=== PATIENT | female | born 1990 | race African-American/Black ===

== ENCOUNTER 2017-06-03 02:37 | Emergency (ER) | payer BC, MEDICAID ==
[2017-06-03] MEDS ORDERED: IPRATROPIUM/ALBUTEROL 0.5-2.5 MG/3 ML AMPUL NEB ONE (03:05)
[2017-06-03] MEDS ORDERED: DEXAMETHASONE 4 MG TABLET PO ONE (03:05)
--- NOTE | 2017-06-03 03:07 | ER Document Report ---
ED General - General Chief Complaint: Asthma Exacerbation Stated Complaint: BREATHING DIFFICULTY Time Seen by Provider: 06/03/17 02:57 Notes: Patient is a 27-year-old female with a past medical history of asthma, no prior hospitalizations or intubations who presents with 2 days of progressively worsening shortness of breath. Patient states she used her albuterol inhaler with some relief of her shortness of breath but not complete resolution. She states she has feels mild tightness in her chest with exertion and this feels very similar to prior mild asthma exacerbations. She denies any significant shortness of breath, hemoptysis, chest pain, syncope, or infectious symptoms. She has not had any fever or constitutional symptoms. She has not seen her primary care doctor regarding today's concerns. TRAVEL OUTSIDE OF THE [place] IN LAST 30 DAYS: No - Related Data Allergies/Adverse Reactions: acetaminophen [From Percocet] Adverse Reaction (Intermediate, Verified 03/30/16 18:03) VOMITING oxycodone HCl [From Percocet] Adverse Reaction (Intermediate, Verified 03/30/16 18:03) VOMITING Past Medical History - General Information source: Patient - Social History Smoking Status: Never Smoker Frequency of alcohol use: None Drug Abuse: None Lives with: Spouse/Significant other Family History: Reviewed & Not Pertinent Review of Systems - Review of Systems Notes: Constitutional: Negative for fever. HENT: Negative for sore throat. Eyes: Negative for visual changes. Cardiovascular: Negative for chest pain. Respiratory: Positive for shortness of breath. Gastrointestinal: Negative for abdominal pain, vomiting or diarrhea. Genitourinary: Negative for dysuria. Musculoskeletal: Negative for back pain. Skin: Negative for rash. Neurological: Negative for headaches, weakness or numbness. 10 point ROS negative except as marked above and in HPI. Physical Exam - Vital signs Interpretation: Normal Notes: PHYSICAL EXAMINATION: GENERAL: Well-appearing, well-nourished and in no acute distress. HEAD: Atraumatic, normocephalic. EYES: Pupils equal round and reactive to light, extraocular movements intact, sclera anicteric, conjunctiva are normal. ENT: nares patent, oropharynx clear without exudates. Moist mucous membranes. NECK: Normal range of motion, supple without lymphadenopathy LUNGS: Breath sounds clear to auscultation bilaterally and equal. Mild end expiratory wheezing HEART: Regular rate and rhythm without murmurs ABDOMEN: Soft, nontender, normoactive bowel sounds. No guarding, no rebound. No masses appreciated. EXTREMITIES: Normal range of motion, no pitting or edema. No cyanosis. NEUROLOGICAL: No focal neurological deficits. Moves all extremities spontaneously and on command. PSYCH: Normal mood, normal affect. SKIN: Warm, Dry, normal turgor, no rashes or lesions noted. Course - Re-evaluation Re-evalutation: 06/03/17 03:05 Patient presents with a mild exacerbation of their baseline asthma. Mild wheezing at time of presentation but vitals do not show significant hypoxemia or tachypnea. No retractions. Patient did clinically improve after receiving nebulizers here in the emergency department. No clinical history to suggest an acute pneumonia to indicate the need for a chest x-ray. Patient able to ambulate without any respiratory distress. Based on patient's overall reassuring assessment, I believe they are stable for outpatient management. A dose of 10 mg of dexamethasone was administered in the emergency department. I do not suspect an acute alternative pathology at this time based on history and exam including acute pulmonary embolus, ACS, pneumothorax, or aortic dissection. At this time will discharge with return precautions and follow-up recommendations. Verbal discharge instructions given a the bedside and opportunity for questions given. Medication warnings reviewed. Patient is in agreement with this plan and has verbalized understanding of return precautions and the need for primary care follow-up in the next 24-72 hours. Discharge - Discharge Clinical Impression: Asthma exacerbation Qualifiers: Asthma severity: mild Asthma persistence: persistent Qualified Code(s): J45.31 - Mild persistent asthma with (acute) exacerbation Condition: Good Disposition: HOME, SELF-CARE Additional Instructions: You were seen for an asthma exacerbation. Your symptoms improved with treatment here in the emergency department. However, it is very important that you return to the emergency department immediately if you began to have worsening difficulty breathing that does not respond to your normal home albuterol inhaler. Your given a dose of steroids here in the emergency department which will last for the next 3 days. Please also follow closely with your primary care physician. you should also return to emergency department if you develop fever greater than 101, persistent cough, persistent vomiting, pass out, or any other symptoms that are concerning to you.
[2017-06-03 03:18] VITALS: BP 117/72
== END 2017-06-03 03:25 | disposition home or self-care (01) ==
LOC: ER 02:37
DX: J45.31 Mild persistent asthma with (acute) exacerbation (principal); R06.02 Shortness of breath
CPT/HCPCS: 94640; 99284; J7620

== ENCOUNTER 2018-03-06 07:58 | Outpatient (CLI) | payer BC, MEDICAID ==
[2018-03-06] MEDS ORDERED: NORMAL SALINE 250 ML IV PRN (08:00)
[2018-03-06] MEDS ORDERED: IRON DEXTRAN COMPLEX 775 MG in NORMAL SALINE 500 ML IV PRN (08:00)
[2018-03-06] MEDS ORDERED: IRON DEXTRAN COMPLEX 25 MG in SYRINGE, DISPOSABLE, 1 EACH IV PRN (08:00)
[2018-03-06 09:15] VITALS: BP 135/74
== END 2018-03-06 14:08 | disposition home or self-care (01) ==
LOC: II 07:58 → 5TH 08:14 → II 14:08
PROVIDERS: ATTEND Internal Medicine
PROC: 3E033GC Introduction of Other Therapeutic Substance into Peripheral Vein, Percutaneous Approach (ICD-10-PCS; principal; 2018-03-06)
DX: D50.8 Other iron deficiency anemias (principal)
CPT/HCPCS: 96365; 96366; 96374; J1750; J7040; J3490

== ENCOUNTER 2018-03-13 08:57 | Outpatient (CLI) | payer MEDICAID ==
[~2018-03-13 08:57] MED LIST: IRON DEXTRAN COMPLEX 800 MG in NORMAL SALINE 500 ML IV PRN; NORMAL SALINE 250 ML IV PRN
[2018-03-13 09:44] VITALS: BP 117/68
== END 2018-03-13 13:54 | disposition home or self-care (01) ==
LOC: II 08:57 → 5TH 09:01 → II 13:54
PROVIDERS: ATTEND Internal Medicine
PROC: 3E033GC Introduction of Other Therapeutic Substance into Peripheral Vein, Percutaneous Approach (ICD-10-PCS; principal; 2018-03-13)
DX: D50.8 Other iron deficiency anemias (principal)
CPT/HCPCS: 96367; J1750; J7040; 96365; 96366

== ENCOUNTER 2018-03-20 09:20 | Outpatient (CLI) | payer MEDICAID ==
[2018-03-20 09:41] VITALS: BP 119/69
== END 2018-03-20 14:12 | disposition home or self-care (01) ==
LOC: II 09:20 → 5TH 09:23 → II 14:12
PROVIDERS: ATTEND Internal Medicine
PROC: 3E033GC Introduction of Other Therapeutic Substance into Peripheral Vein, Percutaneous Approach (ICD-10-PCS; principal; 2018-03-20)
DX: D50.8 Other iron deficiency anemias (principal)
CPT/HCPCS: 96367; J1750; J7040; 96365; 96366

== ENCOUNTER 2018-03-27 11:25 | Outpatient (CLI) | payer MEDICAID | END 2018-03-27 13:15 | disposition home or self-care (01) | LOC: II 11:25 → 5TH 11:29 → II 13:15 | PROVIDERS: ATTEND Internal Medicine | DX: D50.8 Other iron deficiency anemias (principal); Z53.9 Procedure and treatment not carried out, unspecified reason | CPT/HCPCS: J1750; J7040 ==

== ENCOUNTER 2018-04-17 08:55 | Outpatient (CLI) | payer MEDICAID ==
[2018-04-17] MEDS ORDERED: NORMAL SALINE 250 ML IV PRN (09:01)
[2018-04-17] MEDS ORDERED: IRON DEXTRAN COMPLEX 800 MG in NORMAL SALINE 500 ML IV PRN (09:02)
[2018-04-17 09:42] VITALS: BP 135/73
== END 2018-04-17 13:44 | disposition home or self-care (01) ==
LOC: II 08:55 → 5TH 08:56 → II 13:44
PROVIDERS: ATTEND Internal Medicine
PROC: 3E033GC Introduction of Other Therapeutic Substance into Peripheral Vein, Percutaneous Approach (ICD-10-PCS; principal; 2018-04-17)
DX: D50.8 Other iron deficiency anemias (principal)
CPT/HCPCS: 96367; J1750; J7040; 96365; 96366

== ENCOUNTER 2018-07-14 11:40 | Emergency (ER) | payer MEDICAID ==
--- NOTE | 2018-07-14 12:20 | ER Document Report ---
ED Medical Screen (RME) - General Chief Complaint: Palpitations Stated Complaint: HEART RACING Time Seen by Provider: 07/14/18 12:03 Notes: Patient is a 28-year-old female that is 37 weeks gravid that presents to the emergency department for chief complaint of chest tightness and palpitations. Patient has been getting similar symptoms over the past few weeks, later in her , where she feels a crowder of her body, and feels her heart racing, this episode happened while she was at work today. ROS: Other than noted above, the 12 point review of systems was reviewed with the patient and were negative, all pertinent findings are included in the HPI. PHYSICAL EXAMINATION: Vital signs reviewed. GENERAL: Well-appearing, well-nourished and in no acute distress. HEAD: Atraumatic, normocephalic. EYES: Pupils equal round extraocular movements intact, conjunctiva are normal. ENT: Nares patent NECK: Normal range of motion CV: Heart regular rate and rhythm LUNGS: No respiratory distress Musculoskeletal: Normal range of motion NEUROLOGICAL: Normal speech PSYCH: Normal mood, normal affect. MDM: Patient seen and examined for rapid initial assessment. Vital signs reviewed. A comprehensive ED assessment and evaluation of the patient, analysis of test results and completion of the medical decision making process will be conducted by additional ED providers. *Note is created using voice recognition software and may contain spelling, syntax or grammatical errors. TRAVEL OUTSIDE OF THE [place] IN LAST 30 DAYS: No - Related Data Allergies/Adverse Reactions: acetaminophen [From Percocet] Adverse Reaction (Intermediate, Verified 07/14/18 11:40) VOMITING oxycodone HCl [From Percocet] Adverse Reaction (Intermediate, Verified 07/14/18 11:40) VOMITING Past Medical History - Social History Chew tobacco use (# tins/day): No Frequency of alcohol use: None Drug Abuse: None Pulmonary Medical History: Reports: Hx Asthma Renal/ Medical History: Denies: Hx Peritoneal Dialysis Physical Exam - Vital signs Vitals: Temp Pulse Resp BP Pulse Ox 98.9 F 89 20 143/77 H 97 07/14/18 11:55 07/14/18 11:55 07/14/18 11:55 07/14/18 11:55 07/14/18 11:55 Course - Vital Signs Vital signs: Temp Pulse Resp BP Pulse Ox 98.9 F 89 20 143/77 H 97 07/14/18 11:55 07/14/18 11:55 07/14/18 11:55 07/14/18 11:55 07/14/18 11:55
--- NOTE | 2018-07-14 12:31 | ER Document Report ---
ED Cardiac - General Chief Complaint: Palpitations Stated Complaint: HEART RACING Time Seen by Provider: 07/14/18 12:03 Mode of Arrival: Ambulatory Information source: Patient Notes: Patient is a 28-year-old female who presents to the emergency department with chief complaint of shortness of breath, palpitations, dizziness and chest pain. She states this is been intermittent over the last 2 weeks with worsening today. She reports that she had an episode lasting between 30 and 60 minutes in which she had an episode of heart fluttering/racing. She describes the chest pain as a sharp pain that is worse with deep breaths. Patient is a 37 weeks , she is a 4 para 3. She is [facility] at [facility]. She has not had any complications with this . Past medical history includes anemia. Patient denies any history of PE or DVT. Denies any recent tr suzanna or surgery. TRAVEL OUTSIDE OF THE [place] IN LAST 30 DAYS: No - Related Data Allergies/Adverse Reactions: acetaminophen [From Percocet] Adverse Reaction (Intermediate, Verified 07/14/18 11:40) VOMITING oxycodone HCl [From Percocet] Adverse Reaction (Intermediate, Verified 07/14/18 11:40) VOMITING Past Medical History - General Information source: Patient - Social History Smoking Status: Never Smoker Chew tobacco use (# tins/day): No Frequency of alcohol use: None Drug Abuse: None Family History: Reviewed & Not Pertinent Patient has suicidal ideation: No Patient has homicidal ideation: No Pulmonary Medical History: Reports: Hx Asthma Renal/ Medical History: Denies: Hx Peritoneal Dialysis Surgical Hx: Negative - Immunizations Immunizations up to date: Yes Review of Systems - Review of Systems Constitutional: No symptoms reported EENT: No symptoms reported Cardiovascular: Chest pain, Palpitations Respiratory: No symptoms reported Gastrointestinal: denies: Abdominal pain, Diarrhea, Nausea, Vomiting Genitourinary: denies: Dysuria, Frequency Female Genitourinary: denies: Vaginal discharge, Vaginal bleeding Musculoskeletal: No symptoms reported Skin: No symptoms reported Physical Exam - Vital signs Vitals: Temp Pulse Resp BP Pulse Ox 98.9 F 89 20 143/77 H 97 07/14/18 11:55 07/14/18 11:55 07/14/18 11:55 07/14/18 11:55 12/29/18 11:55 - Notes Notes: PHYSICAL EXAMINATION: GENERAL: Well-appearing, well-nourished and in no acute distress. HEAD: Atraumatic, normocephalic. EYES: Pupils equal round and reactive to light, extraocular movements intact, conjunctiva are normal. ENT: Nares patent, oropharynx clear without exudates. Moist mucous membranes. NECK: Normal range of motion, supple without lymphadenopathy LUNGS: Breath sounds clear to auscultation bilaterally and equal. No wheezes rales or rhonchi. HEART: Regular rate and rhythm without murmurs ABDOMEN: Soft, nontender, gravid abdomen. No guarding, no rebound. No masses appreciated. Female : deferred Musculoskeletal: Normal range of motion, no pitting or edema. No cyanosis. NEUROLOGICAL: Cranial nerves grossly intact. Normal speech, normal gait. Normal sensory, motor exams PSYCH: Normal mood, normal affect. SKIN: Warm, Dry, normal turgor, no rashes or lesions noted. Course - Re-evaluation Re-evalutation: EKG was obtained by triage nurse. EKG shows a sinus rhythm with a rate of 93, n ormal axis, no ST segment elevations or depressions. Patient will be placed on the air traffic controller center in the emergency department to monitor for any arrhythmia. Labs were obtained. CBC and CMP are unremarkable. Troponin is negative. Magnesium 1.9. Urinalysis shows small hematuria. Chest x-ray is negative for any acute findings. Patient has not had any recent travel and has no history of PE however she is at a higher than usual risk due to her status. 07/14/18 13:40 Called and spoke with Dr. Navas, on-call BACK G[employer] CLOTH WASHER regarding this patient. She recommends VQ scan if available at our facility. 07/14/18 14:11 Dr. Ruiz, radiologist called and requested that we change order from VQ scan to CTA. He stated that the VQ scan will cause prolonged exposure to radiation in comparison with a CTA. CT is negative for any acute findings to include pulmonary emboli. This was discussed with the patient. Patient's vital signs have remained stable in the emergency department. She has remained in a sinus rhythm without any episodes of tachycardia. Patient will be discharged home at this time in stable condition. - Vital Signs Vital signs: Temp Pulse Resp BP Pulse Ox 98.4 F 89 14 119/77 98 07/14/18 15:55 07/14/18 11:55 07/14/18 15:50 07/14/18 15:51 07/14/18 15:51 - Laboratory Result Diagrams: 07/14/18 12:33 07/14/18 12:33 Laboratory results interpreted by me: 07/14/18 07/14/18 07/14/18 12:33 12:33 13:01 RDW 15.6 H Sodium 136.9 L Carbon Dioxide 21 L Creatinine 0.49 L Glucose 74 L Urine Blood SMALL H - Diagnostic Test Radiology reviewed: Image reviewed, Reports reviewed - EKG Interpretation by Me EKG shows normal: Sinus rhythm Rate: Normal Rhythm: NSR Discharge - Discharge Clinical Impression: Palpitations Condition: Stable Disposition: HOME, SELF-CARE Additional Instructions: Palpitations (Irregular/Rapid Heartrate) Irregular or rapid heartbeat is called "palpitation." To diagnose the cause of palpitation, we have to "catch it in the act" with an EKG. Sinus Tachycardia: This is a rapid (but NORMAL) rhythm that can be due to fever, pain, anxiety, lack of sleep, over-exertion, or drugs. Cold medications, caffeine, and diet pills are particularly likely to cause tachycardia. Usually, all that's required is rest, reassurance, and avoiding caffeine, alcohol, nicotine, and unnecessary medicines. Paroxysmal Atrial Tachycardia (PAT): This abnormally rapid heartbeat is caused by a "short circuit" in the electrical system of the heart. It is not dangerous, unless other heart disease is present. These attacks of PAT may occur occasionally for years. Medication is available for treatment. Paroxysmal Atrial Fibrillation or Atrial Flutter: This is irregular electrical activity in the upper heart chamber. These abnormal rhythms often occur with valve disease or in hearts damaged by hardening of the arteries. These rhythms usually require further testing, for example a cardiac echo. Premature Beats: Extra beats occur more commonly after caffeine, nicotine, alcohol, cold pills, diet pills. Emotional stress or fatigue also provoke them. Extra beats are only dangerous when heart disease is present. They usually need no treatment. If they're frequent, or if evidence of heart disease develops, medication can be given to suppress them. If we were unable to "catch" the palpitations on EKG, you should try to get an EKG immediately if the symptoms begin again. Contact the physician at once if you develop persistent lightheadedness, shortness of breath, chest pain, or swelling of the ankles. Your EKG, blood work and CAT scan of your chest were normal today. Please follow-up with your primary care provider and your [employer] G[employer] W[employer]ER as scheduled. Return to the emergency department if you experience worsening symptoms as outlined above. Referrals: RANDY MARCOS MD [Primary Care Provider] - Follow up as needed
[2018-07-14 12:49] LABS: ABSOLUTE LYMPHOCYTES (AUTO) 1.5 10^3/uL (0.5-4.7); ABSOLUTE MONOCYTES (AUTO) 0.6 10^3/uL (0.1-1.4); BASOPHILS % (AUTO) 0.2 % (0-2); EOSINOPHILS % (AUTO) 0.3 % (0-6); HEMATOCRIT 36.3 % (36.0-47.0); HEMOGLOBIN 12.4 g/dL (12.0-15.5); LYMPHOCYTES % (AUTO) 21.1 % (13-45); MEAN CORPUSCULAR HEMOGLOBIN 32.5 pg (27.0-33.4); MEAN CORPUSCULAR HGB CONC 34.1 g/dL (32.0-36.0); MEAN CORPUSCULAR VOLUME 95 fl (80-97); PLATELET COUNT 206 10^3/uL (150-450); RED BLOOD COUNT 3.81 10^6/uL (3.72-5.28); RED CELL DISTRIBUTION WIDTH 15.6 % (11.5-14.0); SEGMENTED NEUTROPHILS % (AUTO) 69.4 % (42-78); TOTAL CELLS COUNTED % (AUTO) 100 %; WHITE BLOOD COUNT 7.2 10^3/uL (4.0-10.5)
[2018-07-14 13:07] LABS: ALANINE AMINOTRANSFERASE 14 U/L (9-52); ALBUMIN 3.5 g/dL (3.5-5.0); ALKALINE PHOSPHATASE 85 U/L (38-126); ANION GAP 10 (5-19); ASPARTATE AMINO TRANSFERASE 19 U/L (14-36); BILIRUBIN,DIRECT 0.2 mg/dL (0.0-0.4); BILIRUBIN,TOTAL 0.5 mg/dL (0.2-1.3); BLOOD UREA NITROGEN 7 mg/dL (7-20); CALCIUM 9.7 mg/dL (8.4-10.2); CARBON DIOXIDE 21 mmol/L (22-30); CHLORIDE 106 mmol/L (98-107); GLUCOSE 74 mg/dL (75-110); POTASSIUM 4.3 mmol/L (3.6-5.0); SODIUM 136.9 mmol/L (137-145); TOTAL PROTEIN 6.8 g/dL (6.3-8.2)
--- NOTE | 2018-07-14 13:11 | RADIOLOGY REPORT (SQ) ---
EXAM DESCRIPTION: CHEST SINGLE VIEW COMPLETED DATE/TIME: 07/14/2018 1:00 pm REASON FOR STUDY: chest tightness, palpitations COMPARISON: None. NUMBER OF VIEWS: One view. TECHNIQUE: Single frontal radiographic view of the chest acquired. LIMITATIONS: None. FINDINGS: LUNGS AND PLEURA: No opacities, masses or pneumothorax. No pleural effusion. MEDIASTINUM AND HILAR STRUCTURES: No masses. Contour normal. HEART AND VASCULAR STRUCTURES: Heart normal in size. Normal vasculature. BONES: No acute findings. HARDWARE: None in the chest. OTHER: No other significant finding. IMPRESSION: NO SIGNIFICANT RADIOGRAPHIC FINDING IN THE CHEST. TECHNICAL DOCUMENTATION: JOB ID: [id number] [employer]- All Rights Reserved Reading location - IP/workstation name: [email or web address]
[2018-07-14 13:19] LABS: APPEARANCE,URINE SLIGHTLY-CLOUDY; BILIRUBIN,URINE NEGATIVE (NEGATIVE); COLOR,URINE YELLOW; GLUCOSE, URINE NEGATIVE (NEGATIVE); KETONES,URINE NEGATIVE (NEGATIVE); LEUKOCYTE ESTERASE,URINE NEGATIVE (NEGATIVE); NITRITE,URINE NEGATIVE (NEGATIVE); PROTEIN,URINE NEGATIVE (NEGATIVE); URINE SPECIFIC GRAVITY 1.009; UROBILINOGEN,URINE NEGATIVE mg/dL (<2.0)
--- NOTE | 2018-07-14 15:24 | RADIOLOGY REPORT (SQ) ---
EXAM DESCRIPTION: CTA CHEST COMPLETED DATE/TIME: 07/14/2018 3:08 pm REASON FOR STUDY: 37 wks preg, cp, sob COMPARISON: None. TECHNIQUE: CT scan of the chest performed using helical scanning technique with dynamic intravenous contrast injection. Images reviewed with lung, soft tissue and bone windows. Reconstructed coronal and sagittal MPR images reviewed. Additional 3 dimensional post-processing performed to develop Maximal Intensity Projection images (NE P). All images stored on PACS. All CT scanners at this facility use dose modulation, iterative reconstruction, and/or weight based d osing when appropriate to reduce radiation dose to as low as reasonably achievable (ALARA). [facility]: Dose Right [facility]: CareDose [facility]: Dose Right [facility]: Teradose 4D [facility]: [employer] CONTRAST TYPE AND DOSE: contrast/concentration: Isovue 350.00 mg/ml; Total Contrast Delivered: 87.0 ml; Total Saline Delivered: 80.0 ml Contrast bolus optimized for the pulmonary arteries. Not diagnostic for the aorta. RENAL FUNCTION: GFR > 60. RADIATION DOSE: CT Rad equipment meets quality standard of care and radiation dose reduction techniq ues were employed. CTDIvol: 33.2 - 39.7 mGy. DLP: 926 mGy-cm. . LIMITATIONS: None. FINDINGS: LUNGS AND PLEURA: No masses, infiltrates, or pneumothorax. No pleural effusions or pleura l calcifications. AORTA AND GREAT VESSELS: No aneurysm. Contrast bolus not optimized for the aorta. HEART: No pericardial effusion. No significant coronary artery calcifications. PULMONARY ARTERIES: No emboli visualized in the main pulmonary arteries or the segmental branches. HILAR AND MEDIASTINAL STRUCTURES: No identified masses or abnormal nodes. HARDWARE: None in the chest. UPPER ABDOMEN: No significant findings. Limited exam. THYROID AND OTHER SOFT TISSUES: No masses. No adenopathy. BONES: No acute or significant finding. 3D MIPS: Confirm above findings. OTHER: No other significant finding. IMPRESSION: NORMAL CTA OF THE CHEST. NO PULMONARY EMBOLI. COMMENT: Quality ID # [id number]: Final reports with documentation of one or more dose reduction techniques (e.g., Automated exposure control, adjustment of the mA and/or kV according to patient size, use of iterative reconstruction technique) TECHNICAL DOCUMENTATION: JOB ID: [id number] [employer]- All Rights Reserved Reading location - IP/workstation name: [email or web address]
[2018-07-14 15:55] VITALS: BP 119/77
--- NOTE | 2018-07-14 20:32 | EKG REPORT ---
SEVERITY:- OTHERWISE NORMAL ECG - SINUS OR ECTOPIC ATRIAL RHYTHM : Confirmed by: Adolph Anguiano 14-Jul-2018 20:31:31
== END 2018-07-14 15:56 | disposition home or self-care (01) ==
LOC: ER 11:40
DX: O26.893 Other specified pregnancy related conditions, third trimester (principal); R00.2 Palpitations; R06.02 Shortness of breath; R42 Dizziness and giddiness; R07.9 Chest pain, unspecified; Z3A.37 37 weeks gestation of pregnancy
CPT/HCPCS: 36415; 71045; 71275; 80053; 81001; 83735; 84484; 85025; 93005; 93010; 99285

== ENCOUNTER 2018-07-19 11:14 | Outpatient (CLI) | payer MEDICAID ==
[2018-07-19 12:13] LABS: APPEARANCE,URINE SLIGHTLY-CLOUDY; BILIRUBIN,URINE NEGATIVE (NEGATIVE); COLOR,URINE YELLOW; GLUCOSE, URINE NEGATIVE (NEGATIVE); KETONES,URINE NEGATIVE (NEGATIVE); LEUKOCYTE ESTERASE,URINE NEGATIVE (NEGATIVE); NITRITE,URINE NEGATIVE (NEGATIVE); PROTEIN,URINE NEGATIVE (NEGATIVE); URINE SPECIFIC GRAVITY 1.004; UROBILINOGEN,URINE NEGATIVE mg/dL (<2.0)
[2018-07-19] MEDS ORDERED: ACETAMINOPHEN 325 MG TABLET ONE (12:18)
[2018-07-19 12:41] LABS: URINE AMPHETAMINES SCREEN NEGATIVE; URINE BARBITURATES SCREEN NEGATIVE; URINE BENZODIAZEPINES SCREEN NEGATIVE; URINE COCAINE SCREEN NEGATIVE; URINE MARIJUANA (THC) SCREEN NEGATIVE; URINE METHADONE SCREEN NEGATIVE; URINE PHENCYCLIDINE SCREEN NEGATIVE
[2018-07-19] MEDS ORDERED: ACETAMINOPHEN 325 MG TABLET PO ONE (13:00)
--- NOTE | 2018-07-19 13:27 | Non Stress Test Report ---
Non Stress Test Datetime Report Generated by CPN: 07/19/2018 13:27 DEMOGRAPHIC EGA NST: 37.4 INDICATION Indication for Study: Other Indication for Study (NST) Other: LC MONITORING Monitor Explained: Monitor Explained; Test Explained; Patient Verbalized Understanding Time on Monitor: 07/19/2018 11:27 Time off Monitor: 07/19/2018 13:25 NST Duration: 118 NST INTERVENTIONS NST Interventions: PO Hydration Physician Notified NST: P. Love, CNM BABY A: [id number] BABY A Movement : Present Contraction Frequency : Irritability FHR Baseline : 130 Accelerations : 15X15 Decelerations : None Variability : Moderate 6-25bpm NST Review: Meets Criteria for Reactive NST NST Review and Verified By : Lynda Camp RNC NST Results: Reactive NST REPORT Report Trigger: Send Report
== END 2018-07-19 13:30 | disposition home or self-care (01) ==
LOC: LC 11:14
PROVIDERS: ATTEND Student in an Organized Health Care Education/Training Program
PROC: 4A1HXCZ Monitoring of Products of Conception, Cardiac Rate, External Approach (ICD-10-PCS; principal; 2018-07-19)
DX: O99.89 Other specified diseases and conditions complicating pregnancy, childbirth and the puerperium (principal); M54.9 Dorsalgia, unspecified; Z3A.37 37 weeks gestation of pregnancy
CPT/HCPCS: 59025; 81005; 80307; J3490

== ENCOUNTER 2018-07-27 09:09 | Inpatient (IN) | payer MEDICAID ==
[2018-07-27 09:52] LABS: APPEARANCE,URINE SLIGHTLY-CLOUDY; BILIRUBIN,URINE NEGATIVE (NEGATIVE); COLOR,URINE YELLOW; GLUCOSE, URINE NEGATIVE (NEGATIVE); KETONES,URINE NEGATIVE (NEGATIVE); LEUKOCYTE ESTERASE,URINE NEGATIVE (NEGATIVE); NITRITE,URINE NEGATIVE (NEGATIVE); PROTEIN,URINE NEGATIVE (NEGATIVE); URINE SPECIFIC GRAVITY 1.013
[2018-07-27] MEDS ORDERED: RINGERS SOLUTION,LACTATED 1,000 ML IV PRN (09:53)
[2018-07-27] MEDS ORDERED: PENICILLIN G POTASSIUM 5,000,000 UNIT in DEXTROSE 5%-WATER 100 ML IV ONE (09:53)
--- NOTE | 2018-07-27 10:13 | Admission Physical ---
Datetime Report Generated by CPN: 07/27/2018 10:12 CURRENT ADMISSION Chief Complaint: Suspected Ruptured Membranes Indication for Induction: PROM Admit Impression : Term, Intrauterine ; Active Labor Admit Plan: Admit to Unit; Initiate Labor Induction Protocol ALLERGIES Medication Allergies: Yes Medication Allergies: oxycodone HCl/MO/VOMITING (07/27/2018); acetaminophen/MO/VOMITING (07/27/2018) Latex: No Latex Allergies OBSTETRICAL HISTORY EDC: 08/05/2018 00:00 : 4 Para: 3 SEE RECORDS Alcohol: No Marijuana : No Cocaine: No Other Illicit Drugs: No Cigarettes: Never Smoker. [id number] PHYSICAL EXAM General: Normal HEENT: Normal Neurologic: Normal Thyroid: Deferred Heart: Normal Lungs: Normal Breast: Deferred Back: Normal Abdomen: Normal Genitourinary Exam: Normal Extremities: Normal DTRs: Deferred Pelvic Type: Adequate Physical Exam Comments: pelvis proven to 8#1. SVE by RN=3/50/-3 Vital Signs: Reviewed; Within Normal Limits VAGINAL EXAM Dilatation: 3 Effacement: 50 Station: -3 Contraction Comments: irritability MEMBRANES Pooling: Positive FETUS A EGA: 38.5 Monitoring: External US FHR- Baseline: 135 Variability: Moderate 6-25bpm Accelerations: 10X10 Decelerations: None Estimated Weight (gm): 3300 Presentation: Vertex Presentation- Other: confirmed by sono Admit Comment: admitted with PROM since 0800, clear fluid sonfirmed with actim prom. hx asthma-uses albuterol rarely. states maneuvers were done for shoulder dystocia with her second (7#11) baby although not documented as such and 3rd baby (8#1) delivered easily. she estimates this baby at 7#5. was seen by Dr Nur during for anemia-H/H pending. +GBS, penicillin ordered. P: pitocin IOL, GBS prophylaxis, anticipate . PLANS FOR LABOR AND DELIVERY Circumcision: N/A INFORMED CONSENT Assignment: Anne Price MD Signature: with User ID: [email or web address] : with User ID: [email or web address]
[2018-07-27] MEDS ORDERED: OXYTOCIN/NORMAL SALINE 20 UNIT/1,000 ML RTUINJ IV PRN ×2 (10:20→16:34)
[2018-07-27 10:21] LABS: URINE AMPHETAMINES SCREEN NEGATIVE; URINE BARBITURATES SCREEN NEGATIVE; URINE BENZODIAZEPINES SCREEN NEGATIVE; URINE COCAINE SCREEN NEGATIVE; URINE MARIJUANA (THC) SCREEN NEGATIVE; URINE METHADONE SCREEN NEGATIVE; URINE PHENCYCLIDINE SCREEN NEGATIVE
[2018-07-27] MEDS ORDERED: PENICILLIN G-K 5 MILLION UNIT VIAL ONE ×2 (10:27→14:36)
[2018-07-27 11:04] LABS: HEMATOCRIT 36.4 % (36.0-47.0); HEMOGLOBIN 12.4 g/dL (12.0-15.5); MEAN CORPUSCULAR HEMOGLOBIN 32.6 pg (27.0-33.4); MEAN CORPUSCULAR VOLUME 96 fl (80-97); PLATELET COUNT 212 10^3/uL (150-450); RED BLOOD COUNT 3.79 10^6/uL (3.72-5.28); RED CELL DISTRIBUTION WIDTH 15.8 % (11.5-14.0); WHITE BLOOD COUNT 7.5 10^3/uL (4.0-10.5)
[2018-07-27 11:26] LABS: ABSOLUTE LYMPHOCYTES# (MANUAL) 1.2 10^3/uL (0.5-4.7); ABSOLUTE MONOCYTES # (MANUAL) 0.7 10^3/uL (0.1-1.4); ABSOLUTE NEUTROPHILS# (MANUAL) 5.6 10^3/uL (1.7-8.2); BASOPHILS % (MANUAL) 0 % (0-2); EOSINOPHILS % (MANUAL) 0 % (0-6); LYMPHOCYTES % (MANUAL) 13 % (13-45); MONOCYTES % (MANUAL) 9 % (3-13); NUCLEATED RED BLOOD CELLS 2 /100 WBC (0); SEGMENTED NEUTROPHILS % (MAN) 75 % (42-78); TOTAL CELLS COUNTED 100
[2018-07-27 11:28] LABS: ANISOCYTOSIS 1+; PLATELET COMMENT ADEQUATE; PLATELET LARGE PRESENT; POLYCHROMASIA SLIGHT
[2018-07-27] MEDS ORDERED: LIDOCAINE 1% INJ-PF (10 MG/ML) 30 ML SDV ONE (11:32)
[2018-07-27] MEDS ORDERED: MISOPROSTOL 0.2 MG TABLET ONE (11:32)
[2018-07-27] MEDS ORDERED: OXYTOCIN/NORMAL SALINE 20 UNIT/1,000 ML RTUINJ ONE (11:32)
[2018-07-27] MEDS ORDERED: ALBUTEROL SULFATE HFA (90 MCG/PUFF) 200 PUFF/8.5 GM MDI IH PRN (12:26)
[2018-07-27] MEDS ORDERED: PHENYLEPHRINE HCL INJ/PF 10 MG/1 ML SDV ONE (13:33)
[2018-07-27] MEDS ORDERED: BUPIVACAINE HCL 0.25 % INJ/PF (2.5 MG/1 ML) 30 ML VIAL ONE (13:33)
[2018-07-27] MEDS ORDERED: EPHEDRINE SULFATE INJ 50 MG/1 ML AMPULE ONE (13:33)
[2018-07-27] MEDS ORDERED: FENTANYL CITRATE INJ/PF 100 MCG/2 ML AMPUL ONE (13:33)
[2018-07-27] MEDS ORDERED: FENTANYL/BUPIVACAINE/NS/PF 300 MCG/150 ML RTUINJ EPI ONE (13:34)
[2018-07-27] MEDS ORDERED: LIDOCAINE 1.5%/EPINEPHRINE INJ-PF 30 ML SDV ONE (13:43)
[2018-07-27] MEDS: PENICILLIN G POTASSIUM 2,500,000 UNIT in DEXTROSE 5%-WATER 50 ML IV SCH ×2 (14:39→18:56)
[2018-07-27] MEDS ORDERED: MEASLES,MUMPS&RUBELLA VACC/PF 0.5 ML VIAL SUBCUT PRN (16:34)
[2018-07-27] MEDS ORDERED: BENZOCAINE/MENTHOL AEROSOL SPRAY 56 ML TOP PRN (16:34)
[2018-07-27] MEDS ORDERED: NA PHOS,M-B/NA PHOS,DI-BA (ADULT) 133 ML ENEMA PR PRN (16:34)
[2018-07-27] MEDS ORDERED: GLYCERIN/WITCH HAZEL LEAF 1 EACH MED..PAD TP PRN (16:34)
[2018-07-27] MEDS ORDERED: DIBUCAINE 1% OINTMENT 28 GM TP PRN (16:34)
[2018-07-27] MEDS ORDERED: ACETAMINOPHEN WITH CODEINE #3 TABLET PO PRN (16:34)
[2018-07-27] MEDS ORDERED: ZOLPIDEM TARTRATE 5 MG TABLET PO PRN (16:34)
[2018-07-27] MEDS ORDERED: MAGNESIUM HYDROXIDE SUSP 30 ML UDCUP PO PRN (16:34)
[2018-07-27] MEDS ORDERED: DIPH/PERTUSS(ACELL)/TETANUS VAC/PF 0.5 ML SYR (>=10YO) IM PRN (16:34)
[2018-07-27] MEDS ORDERED: PSEUDOEPHEDRINE HCL 30 MG TABLET PO PRN (16:34)
[2018-07-27] MEDS ORDERED: DIPHENHYDRAMINE HCL 25 MG CAPSULE PO PRN (16:34)
[2018-07-27] MEDS ORDERED: ACETAMINOPHEN 650 MG SUPP.RECT PR PRN (16:34)
[2018-07-27] MEDS ORDERED: PROMETHAZINE HCL 25 MG TABLET PO PRN (16:34)
[2018-07-27] MEDS ORDERED: PROMETHAZINE HCL 25 MG SUPP.RECT PR PRN (16:34)
[2018-07-27] MEDS ORDERED: PROMETHAZINE HCL INJ 25 MG/1 ML VIAL IV PRN (16:34)
[2018-07-27] MEDS ORDERED: ACETAMINOPHEN WITH CODEINE #3 TABLET ONE (16:38)
--- NOTE | 2018-07-27 18:24 | Delivery Summary ---
Del Sum A-C Datetime Report Generated by CPN: 07/27/2018 18:23 DELIVERY PERSONNEL DELIVERY PERSONNEL: [id number] Delivery Doctor:: Elizabeth Flores CNM Labor and Delivery Nurse:: Dana Weiner RNhvac manager Nurse:: RICKEY Farfan Medical Practice Assistant/NAIL ARTIST: Lexi Dunlap, FOOD CART ATTENDANT MATERNAL INFORMATION Delivery Anesthesia: Epidural Medications After Delivery: Pitocin Bolus-Please Comment Meds After Delivery Comment: 20 units of pitocin in 1 L NS bolusing per order Maternal Complications: None Provider Comments: ROP VIABLE FEMALE INFANT WITH SPOTANEOUS CRY. CORD DOUBLE CLAMPED AND CUT. SPONTANEOUS PLACENTA INTACT WITH 3VC. NO LACERATIONS. MOTHER AND INFANT STABLE IN L_D #6. LABOR SUMMARY EDC: 08/05/2018 00:00 No. Babies in Womb: 1 Attempted: No Labor Anesthesia: Epidural LABOR INFORMATION Reason for Induction: Premature Rupture of Membranes Onset of Labor: 07/27/2018 13:00 Complete Dilatation: 07/27/2018 16:18 Oxytocin: Induction Group B Beta Strep: Positive Antibiotics # of Doses: 2 Antibiotics Time of Last Dose: 1439 Name of Antibiotic Given: PCN Steroids Given: None Reason Steroids Not Administered: Not Applicable MEMBRANES Membranes Rupture Method: Spontaneous Rupture of Membranes: 07/27/2018 08:00 Length of Rupture (hr): 8.37 Amniotic Fluid Color: Clear Amniotic Fluid Amount: Small Amniotic Fluid Odor: Normal STAGES OF LABOR Stage 1 hr: 3 Stage 1 min: 18 Stage 2 hr: 0 Stage 2 min: 4 Stage 3 hr: 0 Stage 3 min: 5 Total Time in Labor hr: 3 Total Time in Labor min: 27 VAGINAL DELIVERY Episiotomy: None Laceration #1: None Laceration Extension #1: N/A Laceration Repair: Not Applicable Sponge Count Correct: N/A Sharps Count Correct: N/A CSECTION DELIVERY Primary Indication: N/A Secondary Indication: N/A CSection Incidence: N/A Labor: N/A Elective: N/A CSection Incision: N/A BABY A INFORMATION Delivery Date/Time: 07/27/2018 16:22 Method of Delivery: Vaginal Born in Route : No : N/A Forceps: N/A Vacuum Extraction: N/A Shoulder Dystocia : No PRESENTATION/POSITION BABY A Presentation: Cephalic Cephalic Presentation: Vertex Vertex Position: Right Occipital Posterior Breech Presentation: N/A PLACENTA INFORMATION BABY A Placenta Delivery Time : 07/27/2018 16:27 Placenta Method of Delivery: Spontaneous Placenta Status: Delivered SCORES BABY A Heart Rate 1 min: >100 bpm Resp Effort 1 min: Good Cry Reflex Irritability 1 min: Cough or Sneeze or Pulls Away Muscle Tone 1 min: Active Motion Color 1 min: Body [place], Extremities Blue Resuscitation Effort 1 min: Tactile Stimulation SCORE 1 MIN: 9 Heart Rate 5 min: >100 bpm Resp Effort 5 min: Good Cry Reflex Irritability 5 min: Cough or Sneeze or Pulls Away Muscle Tone 5 min: Active Motion Color 5 min: Completely [place] Resuscitation Effort 5 min: Tactile Stimulation SCORE 5 MIN: 10 INFANT INFORMATION BABY A Gestational Age at Delivery: 38.5 Gestational Status: Early Term- 37- 38.6 Weeks Infant Outcome : Liveborn Condition : Stable Infant Sex: Female IDENTIFICATION BABY A Verification Date/Time: 07/27/2018 16:51 ID Band Number: [id number] Mother's Name Verified: Yes RN Verifying : D. Cherince, RNC and C. Van Buren, RN WEIGHT/LENGTH BABY A Infant Birthweight (gm): 2826 Weight (lb): 6 Infant Weight (oz): 4 Length (in): 18.50 Infant Length (cm): 46.99 CORD INFORMATION BABY A No. Cord Vessels: 3 Nuchal Cord : N/A Cord Blood Taken: Yes-For Eval (Mom's Blood Type - or O+) Infant Suction: None ASSESSMENT BABY A Complications: None Physical Findings at Delivery: Within Normal Limits Skin to Skin: Yes Skin to Skin Time (min): 60 Reducing Machine Operator/ALS Called : No Care By: D. Bellavance RNC Transferred To: Remains with Mother BABY B INFORMATION : N/A SIGNATURES Assignment: Anne Price MD Signature: with User ID: [email or web address] : with User ID: [email or web address] : I was personally available for consultation and serving as supervising physician for the MLP.
[2018-07-27] MEDS: FERROUS SULFATE 325 MG TABLET PO SCH (18:54)
[2018-07-27] MEDS: DOCUSATE SODIUM 100 MG CAPSULE PO SCH (18:54)
[2018-07-27] MEDS: IBUPROFEN 800 MG TABLET PO SCH (21:15)
[2018-07-27] MEDS: ACETAMINOPHEN WITH CODEINE #3 TABLET PO PRN (21:15)
[2018-07-27] MEDS: FAMOTIDINE 20 MG TABLET PO SCH (21:16)
[2018-07-28] MEDS: IBUPROFEN 800 MG TABLET PO SCH ×3 (05:33→22:02)
[2018-07-28 08:21] LABS: ABSOLUTE LYMPHOCYTES (AUTO) 1.4 10^3/uL (0.5-4.7); ABSOLUTE MONOCYTES (AUTO) 0.6 10^3/uL (0.1-1.4); ABSOLUTE NEUT (AUTO) 5.9 10^3/uL (1.7-8.2); BASOPHILS % (AUTO) 0.2 % (0-2); EOSINOPHILS % (AUTO) 0.2 % (0-6); HEMATOCRIT 34.3 % (36.0-47.0); HEMOGLOBIN 11.7 g/dL (12.0-15.5); LYMPHOCYTES % (AUTO) 17.8 % (13-45); MEAN CORPUSCULAR HEMOGLOBIN 32.8 pg (27.0-33.4); MEAN CORPUSCULAR VOLUME 97 fl (80-97); MONOCYTES % (AUTO) 7.1 % (3-13); PLATELET COUNT 184 10^3/uL (150-450); RED BLOOD COUNT 3.56 10^6/uL (3.72-5.28); SEGMENTED NEUTROPHILS % (AUTO) 74.7 % (42-78); TOTAL CELLS COUNTED % (AUTO) 100 %; WHITE BLOOD COUNT 7.9 10^3/uL (4.0-10.5)
[2018-07-28] MEDS: FERROUS SULFATE 325 MG TABLET PO SCH ×2 (09:51→18:54)
[2018-07-28] MEDS: PRENATAL VITAMIN W DHA CAPSULE PO SCH (09:51)
[2018-07-28] MEDS: DOCUSATE SODIUM 100 MG CAPSULE PO SCH ×2 (09:52→18:54)
[2018-07-28] MEDS: FAMOTIDINE 20 MG TABLET PO SCH ×2 (09:52→22:03)
[2018-07-28] MEDS: SENNOSIDES/DOCUSATE 8.6-50 MG 1 EACH TABLET PO SCH (09:53)
--- NOTE | 2018-07-28 10:21 | PDOC PROGRESS REPORT ---
Subjective-OB Progress Note for:: 07/28/18 Subjective: reports pain controlled with current meds, bleeding slowing, denies needs Physical Exam (OB) Vital Signs: Temp Pulse Resp BP Pulse Ox 98.8 F 72 18 108/55 L 97 07/28/18 07:54 07/28/18 07:54 07/28/18 07:54 07/28/18 07:54 07/28/18 07:54 Intake & Output 07/27/18 07/28/18 07/29/18 06:59 06:59 06:59 Intake Total 2150 Balance 2150 Weight 121.9 kg - Abdomen Description: Soft Hernia Present: No Fundal Description: Firm, Midline Fundal Height: u/u - u/2 - Abdominal Distension: No distension Tenderness: Nontender - Extremities Lower extremities: Donna's sign - neg Calf: Normal, Nontender Objective-Diagnostic Laboratory: 07/28/18 08:00 07/27/18 07/27/18 07/28/18 10:18 10:18 08:00 WBC 7.5 7.9 RBC 3.79 3.56 L Hgb 12.4 11.7 L Hct 36.4 34.3 L MCV 96 97 MCH 32.6 32.8 MCHC 34.0 34.0 RDW 15.8 H 16.0 H Plt Count 212 184 Seg Neutrophils % Not Reportable 74.7 Lymphocytes % Not Reportable 17.8 Monocytes % Not Reportable 7.1 Eosinophils % Not Reportable 0.2 Basophils % Not Reportable 0.2 Absolute Neutrophils Not Reportable 5.9 Absolute Lymphocytes Not Reportable 1.4 Absolute Monocytes Not Reportable 0.6 Absolute Eosinophils Not Reportable 0.0 Absolute Basophils Not Reportable 0.0 Blood Type O POSITIVE Antibody Screen NEGATIVE Assessment and Plan(PN) - Assessment and Plan (1) Delivery normal Is this a current diagnosis for this admission?: Yes - Time Spent with Patient Time with patient: Less than 15 minutes Medications reviewed and adjusted accordingly: Yes - Disposition Anticipated Discharge: Home Within: within 24 hours
[2018-07-28] MEDS: ACETAMINOPHEN WITH CODEINE #3 TABLET PO PRN (18:53)
[2018-07-29] MEDS: IBUPROFEN 800 MG TABLET PO SCH ×2 (05:08→13:16)
[2018-07-29] MEDS: ACETAMINOPHEN WITH CODEINE #3 TABLET PO PRN (05:08)
--- NOTE | 2018-07-29 08:48 | PDOC DISCHARGE SUMMARY ---
Final Diagnosis Discharge Date: 07/29/18 - Final Diagnosis (1) Delivery normal Is this a current diagnosis for this admission?: Yes Discharge Data - Discharge Medication Prescriptions: Ibuprofen [Motrin 800 mg Tablet] 800 mg PO Q8HP PRN #60 tablet PRN Reason: Home Medications: Pnv W-O Ca No5/Fe Fumarate/FA [-U Multiple Vitamin Capsule] 1 cap PO DAILY 11/22/12 Ibuprofen [Motrin 800 mg Tablet] 800 mg PO Q8HP PRN #60 tablet 07/29/18 Reason(s) for Admission: Induction of Labor, PROM Procedures: NST Intrapartum Procedure(s): Spontaneous Vaginal Delivery - Diagnosis Test Laboratory: Temp Pulse Resp BP Pulse Ox 98.5 F 77 18 136/76 H 96 07/29/18 07:12 07/29/18 07:12 07/29/18 07:12 07/29/18 07:12 07/29/18 07:12 07/27/18 07/27/18 07/28/18 09:15 10:18 08:00 RBC 3.79 3.56 L Hgb 12.4 11.7 L Hct 36.4 34.3 L Urine Opiates Screen NEGATIVE - Discharge information/Instructions Discharge Activity: Balance Activity w/Rest, Pelvic Rest Discharge Diet: Regular Disposition: HOME, SELF-CARE Follow up with: [facility] in: 4, Weeks
[2018-07-29] MEDS: SENNOSIDES/DOCUSATE 8.6-50 MG 1 EACH TABLET PO SCH (09:59)
[2018-07-29] MEDS: FERROUS SULFATE 325 MG TABLET PO SCH (09:59)
[2018-07-29] MEDS: FAMOTIDINE 20 MG TABLET PO SCH (09:59)
[2018-07-29] MEDS: PRENATAL VITAMIN W DHA CAPSULE PO SCH (09:59)
[2018-07-29] MEDS: DOCUSATE SODIUM 100 MG CAPSULE PO SCH (09:59)
[2018-07-29 12:13] VITALS: BP 123/62
[2018-07-31 11:39] LABS: HEPATITIS C VIRUS AB <0.1 s/co ratio (0.0-0.9)
[2018-07-31 13:00] LABS: HEPATITS B SURFACE ANTIGEN Negative (Negative)
== END 2018-07-29 15:00 | disposition home or self-care (01) | DRG 807 ==
LOC: LC 09:09 → LR 10:02 → 2S 18:49
PROVIDERS: ADMIT Obstetrics & Gynecology; ATTEND Obstetrics & Gynecology
PROC: 10E0XZZ Delivery of Products of Conception, External Approach (ICD-10-PCS; principal; 2018-07-27)
PROC: 3E033VJ Introduction of Other Hormone into Peripheral Vein, Percutaneous Approach (ICD-10-PCS; 2018-07-27)
PROC: 4A1HXCZ Monitoring of Products of Conception, Cardiac Rate, External Approach (ICD-10-PCS; 2018-07-27)
PROC: 3E02340 Introduction of Influenza Vaccine into Muscle, Percutaneous Approach (ICD-10-PCS; 2018-07-29)
DX: O99.824 Streptococcus B carrier state complicating childbirth (principal); Z37.0 Single live birth; O66.0 Obstructed labor due to shoulder dystocia; Z23 Encounter for immunization; Z88.6 Allergy status to analgesic agent; Z3A.38 38 weeks gestation of pregnancy
CPT/HCPCS: 36415; 80307; 81005; 84112; 85025; 86592; 86803; 86804; 86850; 86900; 86901; 87340; 90471; 90686; 94760; G0008; J2370; J2540; J2590; J3010; J3490

== ENCOUNTER → 2020-06-08 | Outpatient (CLI) | payer BC ==
--- NOTE | 2020-06-08 09:30 | RADIOLOGY REPORT (SQ) ---
EXAM DESCRIPTION: U/S ABDOMEN LIMITED W/O DOP IMAGES COMPLETED DATE/TIME: 06/08/2020 9:18 am REASON FOR STUDY: RIGHT UPPER QUADRANT PAIN R10.11 RIGHT UPPER QUADRANT PAIN COMPARISON: None. TECHNIQUE: Dynamic and static grayscale images acquired of the abdomen and recorded on PACS. Additio nal selected color Doppler and spectral images recorded. LIMITATIONS: None. FINDINGS: PANCREAS: No masses. Visualized pancreatic duct normal caliber. LIVER: Increased echogenicity consistent with steatosis. Normal size. No masses. LIVER VASCULATURE: Normal directional flow of the main portal vein and hepatic veins. GALLBLADDER: Gallstones. No wall thickening or pericholecystic edema. ULTRASOUND-DETECTED JORDAN'S SIGN: Negative. INTRAHEPATIC DUCTS AND COMMON DUCT: CBD and intrahepatic ducts normal caliber. No filling defects. AORTA: No aneurysm. RIGHT KIDNEY: Normal size. Normal echogenicity. No solid or suspicious masses. No hydronephrosis. No calcifications. PERITONEAL AND RIGHT PLEURAL SPACE: No ascites or effusions. OTHER: No other significant findings. IMPRESSION: 1. Cholelithiasis. No sonographic evidence of acute cholecystitis. 2. Hepatic steatosis. TECHNICAL DOCUMENTATION: JOB ID: [id number] 2010 [email or web address]- All Rights Reserved Reading location - IP/workstation name: [email or web address]
== END ==
LOC: RAD 08:15
PROVIDERS: ATTEND Nurse Practitioner Family
DX: K80.20 Calculus of gallbladder without cholecystitis without obstruction (principal); K76.0 Fatty (change of) liver, not elsewhere classified
CPT/HCPCS: 76705

== ENCOUNTER 2020-08-12 08:07 | Day surgery (SDC) | payer BC ==
[2020-08-10 13:34] LABS: HEMATOCRIT 40.1 % (36.0-47.0); HEMOGLOBIN 13.2 g/dL (12.0-15.5); MEAN CORPUSCULAR HEMOGLOBIN 31.7 pg (27.0-33.4); MEAN CORPUSCULAR VOLUME 96 fl (80-97); PLATELET COUNT 245 10^3/uL (150-450); RED BLOOD COUNT 4.18 10^6/uL (3.72-5.28); RED CELL DISTRIBUTION WIDTH 12.6 % (11.5-14.0); WHITE BLOOD COUNT 4.7 10^3/uL (4.0-10.5)
[2020-08-10 13:48] LABS: ALBUMIN 4.3 g/dL (3.5-5.0); ALKALINE PHOSPHATASE 104 U/L (38-126); AMYLASE 50 U/L (30-110); ANION GAP 10 (5-19); ASPARTATE AMINO TRANSFERASE 26 U/L (14-36); BILIRUBIN,DIRECT 0.2 mg/dL (0.0-0.4); BILIRUBIN,TOTAL 0.5 mg/dL (0.2-1.3); BLOOD UREA NITROGEN 12 mg/dL (7-20); CALCIUM 9.4 mg/dL (8.4-10.2); CARBON DIOXIDE 26 mmol/L (22-30); CHLORIDE 104 mmol/L (98-107); GLUCOSE 81 mg/dL (75-110); POTASSIUM 4.2 mmol/L (3.6-5.0); TOTAL PROTEIN 7.9 g/dL (6.3-8.2)
[~2020-08-12 08:07] MED LIST changes: +ACETAMINOPHEN 325 MG TABLET PO PRN; +CEFAZOLIN 1 GM/D5W RTU 1 GM/50 ML RTUPB IV ONE; +CEFAZOLIN 1 GM/D5W RTU 1 GM/50 ML RTUPB IV PRN; -IRON DEXTRAN COMPLEX 800 MG in NORMAL SALINE 500 ML IV PRN; +LACTATED RINGERS 1000 ML IV PRN; +LIDOCAINE 0.5% INJ-PF (5 MG/ML) 50 ML SDV SUBCUT PRN; -NORMAL SALINE 250 ML IV PRN
[2020-08-12] MEDS ORDERED: FENTANYL CITRATE INJ/PF 100 MCG/2 ML AMPUL ONE (09:02)
[2020-08-12] MEDS ORDERED: HYDROMORPHONE HCL INJ/PF 2 MG/ML AMPULE ONE (09:02)
[2020-08-12] MEDS ORDERED: EPHEDRINE SULFATE INJ 50 MG/1 ML AMPULE ONE (09:03)
[2020-08-12] MEDS ORDERED: SUGAMMADEX SODIUM 200 MG/2 ML SDV IV ONE (09:03)
[2020-08-12] MEDS ORDERED: LIDOCAINE 2% INJ (20 MG/ML) 20 ML MDV ONE (09:03)
[2020-08-12] MEDS ORDERED: PROPOFOL INJ 200 MG/20 ML VIAL IV ONE (09:03)
[2020-08-12] MEDS ORDERED: MIDAZOLAM 2 MG/2 ML INJ ONE ×2 (09:03→10:42)
[2020-08-12] MEDS ORDERED: BUPIVACAINE HCL 0.25 % INJ/PF (2.5 MG/1 ML) 30 ML VIAL ONE (11:17)
[2020-08-12] MEDS ORDERED: FENTANYL CITRATE INJ/PF 100 MCG/2 ML AMPUL IV PRN ×3 (11:53)
[2020-08-12] MEDS ORDERED: PROMETHAZINE HCL INJ 25 MG/1 ML VIAL IV PRN ×2 (11:53)
[2020-08-12] MEDS ORDERED: MEPERIDINE HCL/PF INJ 25 MG/1 ML DISP.SYRIN IV PRN (11:53)
[2020-08-12] MEDS ORDERED: DIPHENHYDRAMINE HCL 50 MG/ML VIAL IV PRN (11:53)
[2020-08-12] MEDS ORDERED: MORPHINE SULFATE 10 MG/ML INJ IV PRN (11:53)
[2020-08-12] MEDS ORDERED: ROCURONIUM BROMIDE INJ 50 MG/5 ML VIAL IV ONE (12:05)
[2020-08-12] MEDS ORDERED: DIPHENHYDRAMINE HCL 50 MG/ML VIAL ONE (12:05)
[2020-08-12] MEDS ORDERED: ONDANSETRON HCL INJ/PF 4 MG/2 ML SDV ONE (12:05)
[2020-08-12] MEDS ORDERED: METOCLOPRAMIDE HCL INJ/PF 10 MG/2 ML SDV ONE (12:05)
[2020-08-12] MEDS ORDERED: KETOROLAC TROMETHAMINE 60 MG/2 ML SDV ONE (12:05)
[2020-08-12] MEDS ORDERED: GLYCOPYRROLATE 1 MG/5 ML VIAL ONE (12:05)
[2020-08-12] MEDS ORDERED: DEXAMETHASONE SOD PHOSPHATE INJ 4 MG/1 ML VIAL ONE (12:05)
[2020-08-12] MEDS ORDERED: SUCCINYLCHOLINE CHLORIDE INJ 200 MG/10 ML VIAL ONE (12:05)
--- NOTE | 2020-08-12 12:22 | Operative Report ---
Operative Report DATE OF SURGERY: 08/12/20 PREOPERATIVE DIAGNOSIS: Symptomatic cholelithiasis with cholecystitis POSTOPERATIVE DIAGNOSIS: Same OPERATION: Laparoscopic cholecystectomy SURGEON: NYDIA SPENCER SUPERVISOR HOSPITALITY HOUSE: ANTHONY DAVEY ANESTHESIA: GA TISSUE REMOVED OR ALTERED: 1 gallbladder with contents COMPLICATIONS: None ESTIMATED BLOOD LOSS: Scant INTRAOPERATIVE FINDINGS: See below PROCEDURE: The patient was taken to the preop holding area the main operating room where general anesthesia was induced. The abdomen was exposed, prepped and draped in sterile fashion and instrumentation was set up for laparoscopic cholecystectomy. Surgical plan and surgical timeout were conducted. Markings were made on the skin for for port laparoscopy including the subxiphoid, supraumbilical, and right upper quadrant. A vertical incision was made over the umbilicus, Veress needle inserted the peritoneal cavity uneventfully, pneumoperitoneum was established, Veress needle removed, 5 mm port inserted, and a 5 mm flexible viewing scope was inserted into the peritoneal cavity. There is no evidence of vascular or visceral injury. Under direct visualization 3 additional ports were placed one in the subxiphoid and 2 in the subcostal position. Findings were significant for moderate adhesions between the gallbladder and the transverse colon and these adhesions were taken down with a combination of blunt and gentle electrocautery dissection. We now grasped the gallbladder from the fundus, the infundibulum and dissected out the neck. The triangle of Calot was opened widely, the critical view obtained. The cystic artery and cystic duct were in their classic location. Photos were taken. The cystic artery was clipped twice proximally once distally then divided with scissors. The gallbladder infundibulum was full of stones. A clip was placed on the neck of the gallbladder, and the cystic duct opened with scissors. Bile was released, and there were no stones in the cystic duct. The cystic duct was clipped proximally 2 times. The duct was completely divided with scissors and now the gallbladder was removed from the liver bed using hook cautery dissection uneventful fashion. The gallbladder was part of the patient to the supraumbilical port site without spillage of stones. The specimen was passed off to pathology for permanent analysis. Returned the peritoneal cavity check for bleeding there was none. Sponge and needle counts are correct. Checked the position of the clips on the cystic duct and cystic artery stumps and they were intact and a photo taken. We leveled the patient now check for bleeding or fluid and there was none. We felt the operation was complete. All ports removed under direct visualization, pneumoperitoneum evacuated, and wounds closed with 0 Vicryl, 3-0 Vicryl, benzoin and Steri-Strips. Patient tolerated the procedure well, extubated, taken to the recovery room in stable condition.
--- NOTE | 2020-08-12 12:27 | Discharge Summary ---
Discharge Summary (SDC) - Discharge Final Diagnosis: cholelithiasis Date of Surgery: 08/12/20 Discharge Date: 08/12/20 Condition: Good Forms: ASU Anesthesia D/C Instruction, Discharge POC-Surgical Service Treatment or Instructions: [facility] [address], [place] [address] Discharge Instructions: Laparoscopic Surgery 1. General Information: a. DO NOT DRIVE a car or operate dangerous machinery for 3-4 days or while taking narcotic pain pills. b. DO NOT consume alcohol, tranquilizers, sleeping medications or any non- prescribed medications for 24 hours unless approved by your doctor or as long as taking narcotic prescription medications. c. DO NOT make important decisions or sign any important papers for the first 24 hours after surgery. d. When discharged home the same day of surgery have a responsible person with you for the first night. 2. Activity Restrictions: 2 weeks a. NO heavy lifting, straining abdominal muscles, bending over a lot, yard work, house work, or sports for [address] for 3-4 days. c. It is fine to go for walks, up and down steps, ride in a car. d. Elevate your head when sleeping/resting. 3. Treatment: a. You may shower 24 hours after surgery, no baths or swimming for 2 weeks. Leave paper strips (steri-strips) on the skin to fall off on their own. If still on at postoperative visit they will be removed then. Do not scrub wounds. Pat area dry and cover if needed. b. Drainage of fluid or blood is not unusual from an incision. If occurs, you can clean with peroxide and cotton ball daily and cover with dry gauze until the wound seals. c. If a lot of bleeding occurs, you can hold pressure with a gauze or cloth over the site for 10 minutes and it will usually stop. If bleeding continues you will need to call for possible evaluation in office or emergency room. 4. Medications: a. __Toradol__ may be taken for pain as needed, one tablet every 6 hours. Do not take additional NSAIDs with medication. You may take Tylenol as needed. b. You should resume all normal medications unless a change is specified by your doctors. 5. Diet: Begin with clear liquids and may progress to your normal diet if not nauseated. No high fat, high protein foods the day of surgery. 6. The following may occur after laparoscopic surgery: a. Shoulder or upper back ache from retained gas that should resolve in 1-2 days b. Soreness and bruising at incision sites will resolve with time. c. Scrotal swelling (labia in women) and bruising is often seen after hernia surgery. d. Sore throat e. Fatigue may last days to weeks. f. Difficulty urinating may occur and may need to come into emergency room for urinary catheter placement. 7. Notify Physician If: a. Worsening or pain not improved with pain medication b. Persistent nausea and vomiting c. Fever above 101 d. Persistent bleeding or swelling at operative site e. Unable to urinate and uncomfortable bladder 6-8 hours after surgery 8..Follow Up Care: a. Schedule a follow up appointment with your doctor for 2 weeks. In the event of any postoperative problems or questions or you may call the office during business hours or the On-Call physician evenings and weekends at [facility]. [facility] I understand the instructions for my postoperative care as described above and a copy has been given to me. Patient/Significant Other Witness Date Prescriptions: Ketorolac Tromethamine [Toradol 10 mg Tablet] 10 mg PO Q6HP PRN #20 tablet PRN Reason: Referrals: NYDIA MALDONADO MD [ACTIVE STAFF] - Discharge Diet: Other (Comments) - Small bland portions then progress. Discharge Activity: Balance Activity w/Rest, No Lifting/Push/Pulling, Walk Frequently Report the Following to Your Physician Immediately: Nausea, Vomiting, Increase in Pain, Fever over 101 Degrees, Unusual Bleeding, Redness, Swelling, Warmth, Increased Soreness, Drainage-Foul Smelling, Large Clots, Numbness
[2020-08-12] MEDS ORDERED: KETOROLAC TROMETHAMINE INJ/PF 30 MG/1 ML SDV ONE (12:47)
[2020-08-12] MEDS ORDERED: KETOROLAC TROMETHAMINE INJ/PF 30 MG/1 ML SDV INJ ONE (12:50)
[2020-08-12] MEDS ORDERED: HYDROCODONE/ACETAMINOPHEN 7.5-325 MG TABLET ONE (13:29)
[2020-08-12 16:55] VITALS: BP 149/77
== END 2020-08-12 14:40 | disposition home or self-care (01) ==
LOC: OROUT 08:07
PROVIDERS: ATTEND Surgery
DX: K80.10 Calculus of gallbladder with chronic cholecystitis without obstruction (principal); Z87.891 Personal history of nicotine dependence; Z01.812 Encounter for preprocedural laboratory examination; Z20.822 Contact with and (suspected) exposure to COVID-19; Z79.899 Other long term (current) drug therapy; Z83.79 Family history of other diseases of the digestive system
CPT/HCPCS: 47562; 36415 ×2; 82150; 85027; 0241U; 81025; 80076; 80048; 88304 ×2; U0003; J2250; J3490 ×2; J0690; J3010; J1885; J2704; C9803 ×2; 790; 87635; J0330; J1100; J1170; J1200; J2405; J2765